=== PATIENT | female | born 1975 | race Caucasian/White ===

== ENCOUNTER 2017-06-24 18:57 | Emergency (ER) | payer MEDICAID ==
[~2017-06-24] VITALS: Ht 162.6 cm; Wt 70.0 kg
[2017-06-24 19:04] VITALS: Ht 162.6 cm; Wt 70.0 kg
[2017-06-24 20:59] LABS: CALCIUM 8.8 mg/dL (8.5-10.1); CARBON DIOXIDE 25.4 mmol/L (21-32); CHLORIDE SERUM 104 mmol/L (98-107); CREATININE SERUM 0.9 mg/dL (0.6-1.0); GFR1 > 60 mL/min; GLUCOSE SERUM 97 mg/dL (74-106); POTASSIUM SERUM 3.4 mmol/L (3.5-5.1); SODIUM SERUM 139 mmol/L (136-145)
[2017-06-24 21:13] LABS: FREE T4 1.01 ng/dL (0.76-1.46)
[2017-06-24 22:02] VITALS: BP 105/75
== END 2017-06-24 22:02 | disposition home or self-care (01) ==
LOC: ED 18:57
PROVIDERS: Emergency Medicine
DX: R42 Dizziness and giddiness (principal); R51 Headache; R11.2 Nausea with vomiting, unspecified; F17.210 Nicotine dependence, cigarettes, uncomplicated
CPT/HCPCS: 84439; J8597; Q0162